=== PATIENT | female | born 1990 | race Asian ===

== ENCOUNTER 2018-08-14 13:31 | Emergency (ER) | payer OTHER ==
[~2018-08-14] VITALS: Ht 167.6 cm; Wt 74.8 kg
[2018-08-14 13:43] VITALS: TEMP 99.5
[2018-08-14 14:13] LABS: PLATELET COUNT 359 K/uL (152-353)
[2018-08-14 14:22] LABS: POTASSIUM 3.6 mmol/L (3.6-5.2)
[2018-08-14 16:34] VITALS: BP 124/64
== END 2018-08-14 16:34 | disposition home or self-care (01) ==
LOC: ED 13:31
PROVIDERS: Student in an Organized Health Care Education/Training Program
DX: Z33.1 Pregnant state, incidental (principal)
CPT/HCPCS: 36415; 80053; 81000; 81025; 82150; 83690; 84702; 85027; 86318; 96360; 96361; 96374; 96375; 99284; J2405